=== PATIENT | male | born 1990 | race Caucasian/White ===

== ENCOUNTER 2018-11-19 08:30 | Emergency (ER) | payer OTHER ==
--- NOTE | 2018-11-19 08:44 | EDM.PDOC ---
ED HPI GENERAL MEDICAL PROBLEM - General Chief Complaint: Chest Pain Stated Complaint: CHEST HURT, DIZZY Time Seen by Provider: 11/19/18 08:44 Source of Information: Reports: Patient History Limitations: Reports: No Limitations - History of Present Illness INITIAL COMMENTS - FREE TEXT/NARRATIVE: 28-year-old male presents to the ED with persistent retrosternal chest pressure discomfort with a bit of a pleuritic component as it is worsened by deep breathing and is more sharp and stabbing. Patient states she awoke with this pain about 0400 hrs. this morning and it has persisted. It is slightly worse when he is sitting up versus lying down. Denies cough or sputum production. Denies fever or chills. He's never had anything like this before. He has not been ill recently. He chews tobacco but does not smoke cigarettes. Family history of heart disease mostly in his grandparents. Denies any feeling of need to burp or belch. Rare reflux disease. No previous abdominal surgery. Pain does not radiate anywhere. He did feel like his left arm was numb and tingly for. Of this time this morning but is better now. Onset: Today Onset Date: 11/19/18 Onset Time: 04:00 Duration: Hour(s):, Constant, Getting Worse Location: Reports: Chest Quality: Reports: Ache, Pressure, Other (There is a pleuritic component to the pain is well) Severity: Moderate (as it is aggravated by deep breathing. 7 out of 10) Improves with: Reports: Rest (Lying down is better than sitting up.) Worsens with: Reports: Other (Sitting forwards.) Context: Denies: Activity, Exercise, Lifting, Sick Contact, Trauma, Other Associated Symptoms: Reports: Chest Pain. 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 Denies: Fever, Chills, Weakness, Fatigue, Decreased Appetite, Weight Loss HEENT: Reports: No Symptoms Respiratory: Reports: Pleuritic Chest Pain. Denies: Shortness of Breath, Wheezing, Cough, Sputum (On deep inspiration) Cardiovascular: Reports: Chest Pain. Denies: Claudication, Dyspnea on Exertion , Edema, Lightheadedness, Orthopnea (Central retrosternal chest pressure discomfort starting in the epigastrium rating up into the lower chest) Endocrine: Reports: No Symptoms GI/Abdominal: Reports: Abdominal Pain (Epigastric pressure discomfort radiating up into his chest.) : Reports: No Symptoms Musculoskeletal: Reports: No Symptoms Skin: Reports: No Symptoms Neurological: Reports: No Symptoms Psychiatric: Reports: No Symptoms Hematologic/Lymphatic: Reports: No Symptoms Immunologic: Reports: No Symptoms ED EXAM, GENERAL - Physical Exam Exam: See Below Exam Limited By: No Limitations General Appearance: Alert, WD/WN, No Apparent Distress, Other (Vital signs are normal with a bradycardia 57/m BP mildly elevated 147/86 with sats of 97% on room air. Respiratory disease 18) Eye Exam: Bilateral Eye: Normal Inspection Throat/Mouth: Normal Oropharynx, Other Head: Atraumatic, Normocephalic Neck: Normal Inspection, Supple, Non-Tender, Full Range of Motion. No: Lymphadenopathy (L), Lymphadenopathy (R) Respiratory/Chest: No Respiratory Distress, Lungs Clear, Normal Breath Sounds, No Accessory Muscle Use Cardiovascular: Normal Peripheral Pulses, Regular Rate, Rhythm, No Edema, No Gallop, No Murmur, No Rub, Other (Patient has quiet lung sounds but he does have a thick chest.) Peripheral Pulses: 3+: Posterior Tibial (L), Posterior Tibial (R), Dorsalis Pedis (L), Dorsalis Pedis (R) GI/Abdominal: Normal Bowel Sounds, Soft, Non-Tender, No Organomegaly, No Abnormal Bruit, No Mass, Pelvis Stable Back Exam: Normal Inspection, Full Range of Motion. No: CVA Tenderness (L), CVA Tenderness (R) Extremities: Normal Inspection, Normal Range of Motion, Non-Tender, No Pedal Edema, Normal Capillary Refill Neurological: Alert, Oriented, CN II-XII Intact, Normal Cognition, Normal Gait, No Motor/Sensory Deficits Psychiatric: Normal Affect, Normal Mood Skin Exam: Warm, Dry, Intact, Normal Color, No Rash EKG INTERPRETATION EKG Date: 11/19/18 Time: 08:44 Rhythm: Other Rate (Beats/Min): 57 [place]: Normal P-Wave: Present QRS: Other (He has Q waves in V1 and V2. Consider old anteroseptal myocardial infarction.) ST-T: Elevated (Diffuse mildly elevated ST segment in V3 to V6 also to 3 and aVF consider possible pericarditis versus early repolarization pattern.) QT: Normal EKG Interpretation Comments: Borderline ECG Course - Vital Signs Last Recorded V/S: Last Vital Signs Temp 36.9 C 11/19/18 08:39 Pulse 57 L 11/19/18 08:39 Resp 18 11/19/18 08:39 BP 147/86 H 11/19/18 08:39 Pulse Ox 97 11/19/18 08:39 - Orders/Labs/Meds Orders: Active Orders 24 hr Category Date Time Status EKG Documentation Completion [RC] STAT Care 11/19/18 08:59 Active Chest 1V Frontal [CR] Stat Exams 11/19/18 08:59 Taken DD [D-DIMER QUANTITATIVE] [COAG] Stat Lab 11/19/18 10:55 Received INR,PT,PROTHROMBIN TIME [COAG] Stat Lab 11/19/18 10:05 Received PTT,PARTIAL THROMBOPLSTIN TIME [COAG] Stat Lab 11/19/18 10:05 Received Dextrose 5%-0.9% NaCl [Dextrose 5%-Normal Saline] 1,000 Med 11/19/18 09:00 Active ml IV ASDIRECTED Ketorolac [Toradol] Med 11/19/18 09:00 Active 30 mg IVPUSH ONETIME Medication Orders Dextrose/Sodium Chloride (Dextrose 5%-Normal Saline) 1,000 mls @ 500 mls/hr IV ASDIRECTED ANGELICA Last Admin: 11/19/18 09:54 Dose: 500 mls/hr Ketorolac Tromethamine (Toradol) 30 mg IVPUSH ONETIME ANGELICA Last Admin: 11/19/18 09:55 Dose: 30 mg Labs: Laboratory Tests 11/19/18 11/19/18 11/19/18 Range/Units 09:44 09:44 09:44 WBC 8.57 (4.23-9.07) K/mm3 RBC 5.56 (4.63-6.08) M/mm3 Hgb 16.3 (13.7-17.5) gm/L Hct 47.8 (40.1-51.0) % MCV 86.0 (79.0-92.2) fl MCH 29.3 (25.7-32.2) pg MCHC 34.1 (32.2-35.5) g/dl RDW Std Deviation 40.9 (35.1-43.9) fL Plt Count 269 (163-337) K/mm3 MPV 10.1 (9.4-12.3) fl Neutrophils % (Manual) 70 H (40-60) % Band Neutrophils % 0 (0-10) % Lymphocytes % (Manual) 20 (20-40) % Atypical Lymphs % 0 % Monocytes % (Manual) 9 (2-10) % Eosinophils % (Manual) 1 (0.8-7.0) % Basophils % (Manual) 0 L (0.2-1.2) Platelet Estimate Adequate RBC Morph Comment Normal ESR 5 (0-15) mm/hr Sodium 140 (136-145) mEq/L Potassium 3.7 (3.5-5.1) mEq/L Chloride 104 (98-107) mEq/L Carbon Dioxide 26 (21-32) mEq/L Anion Gap 13.7 (5-15) BUN 14 (7-18) mg/dL Creatinine 1.3 (0.7-1.3) mg/dL Est Cr Clr Drug Dosing 89.30 mL/min Estimated GFR (MDRD) > 60 (>60) mL/min BUN/Creatinine Ratio 10.8 L (14-18) Glucose 160 H (74-106) mg/dL Calcium 9.0 (8.5-10.1) mg/dL Total Bilirubin 0.4 (0.2-1.0) mg/dL AST 26 (15-37) U/L ALT 46 (16-63) U/L Alkaline Phosphatase 49 (46-116) U/L CK-MB (CK-2) 2.3 (0-3.6) ng/ml Troponin I < 0.017 (0.00-0.056) ng/mL C-Reactive Protein 0.8 (<1.0) mg/dL Total Protein 6.5 (6.4-8.2) g/dl Albumin 3.6 (3.4-5.0) g/dl Globulin 2.9 gm/dL Albumin/Globulin Ratio 1.2 (1-2) Amylase 45 (25-115) U/L Meds: Medications Generic Name Dose Route Start Last Admin Trade Name Freq PRN Reason Stop Dose Admin Dextrose/Sodium Chloride 1,000 mls @ 500 mls/hr 11/19/18 09:00 11/19/18 09:54 Dextrose 5%-Normal Saline IV 500 mls/hr ASDIRECTED ANGELICA Administration Ketorolac Tromethamine 30 mg 11/19/18 09:00 11/19/18 09:55 Toradol IVPUSH 30 mg ONETIME ANGELICA Administration Discontinued Medications Generic Name Dose Route Start Last Admin Trade Name Freq PRN Reason Stop Dose Admin Metoclopramide HCl 10 mg 11/19/18 08:58 11/19/18 09:55 Reglan IVPUSH 11/19/18 08:59 10 mg ONETIME ONE Administration - Radiology Interpretation Free Text/Narrative:: 28-year-old male presents to the ED with diffuse retrosternal chest pressure discomfort with associated intermittent left upper extremity numbness and tingling. It's better at the time of my examination. The chest pain is a little bit worse when he sitting versus lying down suggesting possible pericarditis. His ECG shows mild ST segment depression in V3 to V6 and throughout the inferior wall as well. There is a pleuritic component to his pain as well. Is otherwise in good health and usually uses no medications. Very little history of GERD or reflux. No history of burping or belching no odynophagia. Normal examination. Plan 1 view chest x-ray routine labs to include cardiac markers and a d-dimer. Also CRP and sedimentation rate. Will be given D5 normal saline at 250 mils per hour. Given Toradol 30 mg IV for relief of chest pain. - Re-Assessments/Exams Free Text/Narrative Re-Assessment/Exam: 11/19/18 09:24 chest x-ray done portably is normal normal cardiac silhouette lungs are clear. 11/19/18 10:07 patient reports chest pain is pretty well gone. It still present little bit when he sits up. Still waiting for the labs 11/19/18 10:40 Labs are back with a total white count of 8.57. 70% neutrophils with no bands hemoglobin is 16.3 with a hematocrit of 47.8 suggesting mild hemoconcentration sedimentation rate is 5. Sodium 140 with a potassium of 3.7. Port 104 with a bicarbonate 26. And a gap is 13.7 BUN is 14 with a creatinine of 1.3. GFR is greater than 60. Glucose is 160 mildly elevated. Calcium is 9.0. Liver function is normal. CK-MB is 2.3 troponin I is less than 0.017. C- reactive protein 0.8. Total protein 6.5 with albumin fraction of 3.6. Amylase is 45. Patient reassured of the findings. He's quite anxious to go. He is completely pain-free after using the Toradol was given IV. I still not 100% sure that he doesn't have a mild pericarditis. Has a mild pleurisy pain. He will continue [id number] Motrin 600 mg every 6 hours or Aleve 2 tablets every 8 hours for relief of the pain. Follow-up as indicated if he's not markedly improved in 5-7 days or sooner if he develops shortness of breath or any fever or chills. Departure - Departure Time of Disposition: 10:42 Disposition: Home, Self-Care 01 Condition: Fair Clinical Impression: Non-cardiac chest pain, Pleurisy Instructions: Pleurisy Referrals: PCP,None [Primary Care Provider] - Forms: ED Department Discharge Additional Instructions: Evaluation the emergency room this morning in regards to development of pleuritic chest pain since 4:00 this morning. Hurts to breathe also hurts to sit forward rather than lie down suggesting you may have a mild pericarditis or inflammation of the sac around her heart. Chest x-ray is normal. Lab tests all proved to be negative with no evidence of heart related illness. Cause of this is almost always viral. Treatment is anti-inflammatory Motrin 600 mg every 6 hours as needed to reduce the pain and inflammation for the next 3-5 days. You' re given Toradol 30 mg in the ED intravenously which did take away her chest pain. Follow-up if the pain is not markedly improved after 5-7 days duration. Sooner if the pain worsens or his associate with developing shortness of breath. Also if there is any fever or chills. - My Orders Last 24 Hours: My Active Orders 11/19/18 08:59 EKG Documentation Completion [RC] STAT Chest 1V Frontal [CR] Stat 11/19/18 09:00 Dextrose 5%-0.9% NaCl [Dextrose 5%-Normal Saline] 1,000 ml IV ASDIRECTED Ketorolac [Toradol] 30 mg IVPUSH ONETIME 11/19/18 10:05 INR,PT,PROTHROMBIN TIME [COAG] Stat PTT,PARTIAL THROMBOPLSTIN TIME [COAG] Stat 11/19/18 10:55 DD [D-DIMER QUANTITATIVE] [COAG] Stat - Assessment/Plan Last 24 Hours: My Active Orders 11/19/18 08:59 EKG Documentation Completion [RC] STAT Chest 1V Frontal [CR] Stat 11/19/18 09:00 Dextrose 5%-0.9% NaCl [Dextrose 5%-Normal Saline] 1,000 ml IV ASDIRECTED Ketorolac [Toradol] 30 mg IVPUSH ONETIME 11/19/18 10:05 INR,PT,PROTHROMBIN TIME [COAG] Stat PTT,PARTIAL THROMBOPLSTIN TIME [COAG] Stat 11/19/18 10:55 DD [D-DIMER QUANTITATIVE] [COAG] Stat
[2018-11-19] MEDS ORDERED: Metoclopramide 10 MG/2 ML SDV IVPUSH ONE (08:58)
[2018-11-19] MEDS ORDERED: Ketorolac 30 MG/ML SDV IVPUSH SCH (09:00)
[2018-11-19] MEDS ORDERED: Dextrose 5%-0.9% NaCl 1,000 ML IV SCH (09:00)
[2018-11-19] MEDS ORDERED: Metoclopramide 10 MG/2 ML SDV ONE (09:49)
[2018-11-19] MEDS ORDERED: Ketorolac 30 MG/ML SDV ONE (09:49)
[2018-11-19] MEDS ORDERED: Dextrose 5% in Water 1,000 ML ONE (09:50)
[2018-11-19] MEDS ORDERED: Dextrose 5%-0.9% NaCl 1,000 ML ONE (09:51)
--- NOTE | 2018-11-19 14:29 | CR ---
Chest: Portable view of the chest was obtained. Comparison: No prior chest x-ray. Heart size and mediastinum are normal. Lungs are clear. Bony structures are grossly intact. Impression: 1. Nothing acute is seen on portable chest x-ray. Diagnostic code #1
== END 2018-11-19 10:55 | disposition home or self-care (01) ==
LOC: JD.ED 08:30
DX: R07.89 Other chest pain (principal); R09.1 Pleurisy; F17.290 Nicotine dependence, other tobacco product, uncomplicated
CPT/HCPCS: 36415; 71045; 80053; 82150; 82553; 84484; 85007; 85027; 85379; 85610; 85652; 85730; 86140; 93005; 96361; 96374; 96375; 99285; J1885; J2765; J7042; 93010

== ENCOUNTER 2019-01-31 22:35 | Emergency (ER) | payer OTHER ==
[2019-01-31] MEDS ORDERED: Acetaminophen/oxyCODONE 325-5 MG Tab PO ONE (23:30)
[2019-01-31] MEDS ORDERED: predniSONE 20 MG Tab PO ONE (23:30)
--- NOTE | 2019-02-01 00:04 | EDM.PDOC ---
ED HPI GENERAL MEDICAL PROBLEM - General Chief Complaint: Lower Extremity Injury/Pain Stated Complaint: GOUT IN LEFT FOOT Time Seen by Provider: 01/31/19 23:21 Source of Information: Reports: Patient, RN Notes Reviewed - History of Present Illness INITIAL COMMENTS - FREE TEXT/NARRATIVE: 28-year-old male presents with complaint of "gout left foot". In having pain left mid foot and ankle about 3 days ago. He has been taking Indocin "every 3-4 hours while awake and not getting meaningful relief". He has had multiple attacks of gout in the past. No recent injury. No fever or chills. Left Ankle Pain Score (Numeric/FACES): 9 - Related Data Allergies Allergy/AdvReac Type Severity Reaction Status Date / Time No Known Allergies Allergy Verified 01/31/19 22:44 Home Meds: Home Meds Indomethacin [Indocin] 50 mg PO ASDIRECTED PRN 11/19/18 [History] oxyCODONE HCl/Acetaminophen [Percocet 5-325 mg Tablet] 1 each PO Q6HR PRN #6 tablet 02/01/19 [Rx] predniSONE [Prednisone] 50 mg PO DAILY #6 tablet 02/01/19 [Rx] Past Medical History Genitourinary History: Reports: Other (See Below) Other Genitourinary History: Polycystic kidney Musculoskeletal History: Reports: Gout Other Endocrine/Metabolic History: polycystic kidney disease. - Past Surgical History GI Surgical History: Reports: Hernia, Inguinal Social & Family History - Tobacco Use Smoking Status *Q: Current Every Day Smoker Years of Tobacco use: 17 Packs/Tins Daily: 1 - Recreational Drug Use Recreational Drug Use: No Review of Systems - Review of Systems Review Of Systems: See Below Constitutional: Denies: Chills, Fever Eyes: Reports: No Symptoms Mouth/Throat: Reports: No Symptoms Respiratory: Denies: Shortness of Breath Cardiovascular: Denies: Chest Pain GI/Abdominal: Denies: Abdominal Pain, Nausea, Vomiting Musculoskeletal: Reports: Foot Pain, Joint Pain (Left ankle) Skin: Reports: No Symptoms Neurological: Reports: No Symptoms ED EXAM, GENERAL - Physical Exam Exam: See Below General Appearance: Alert, Moderate Distress Throat/Mouth: Normal Inspection Head: Atraumatic. No: Facial Swelling Neck: Supple Respiratory/Chest: No Respiratory Distress, Lungs Clear Cardiovascular: Regular Rate, Rhythm Extremities: Other (There is tenderness of the left midfoot and distal ankle joint anteriorly. No visible swelling, no warmth or erythema, mild pain with motion.). No: Joint Swelling Neurological: Alert, Oriented, No Motor/Sensory Deficits Skin Exam: Warm, Dry, Normal Color Course - Vital Signs Last Recorded V/S: Last Vital Signs Temp 98.5 F 01/31/19 22:44 Pulse 76 01/31/19 22:44 Resp 20 01/31/19 22:44 BP 155/87 H 01/31/19 22:44 Pulse Ox 97 01/31/19 22:44 - Orders/Labs/Meds Meds: Medications Discontinued Medications Generic Name Dose Route Start Last Admin Trade Name Freq PRN Reason Stop Dose Admin Oxycodone/Acetaminophen 1 tab 01/31/19 23:30 01/31/19 23:40 Percocet 325-5 Mg PO 01/31/19 23:31 1 tab ONETIME ONE Administration Prednisone 80 mg 01/31/19 23:30 01/31/19 23:41 Prednisone PO 01/31/19 23:31 80 mg ONETIME ONE Administration Departure - Departure Time of Disposition: 00:02 Disposition: Home, Self-Care 01 Clinical Impression: Gout Qualifiers: Gout site: ankle Gout etiology: unspecified cause Chronicity: acute Laterality : left Qualified Code(s): M10.9 - Gout, unspecified - Discharge Information Prescriptions: oxyCODONE HCl/Acetaminophen [Percocet 5-325 mg Tablet] 1 each PO Q6HR PRN #6 tablet PRN Reason: Pain predniSONE [Prednisone] 50 mg PO DAILY #6 tablet Instructions: Gout, [id number] Referrals: PCP,None [Primary Care Provider] - Forms: ED Department Discharge Additional Instructions: Rest and elevate foot as much as possible, continue Indocin as previously prescribed, prednisone 50 mg daily with your next dose this morning any time after 8:00. You have been given a dose of Percocet here in the ED. Do not drive or work within 6 hours of taking Percocet. Do not drive or work if you feel dizzy or impaired from the Percocet. You may continue to take Percocet in the evening after work if needed for severe pain not relieved by Indocin and Tylenol. follow up with your regular medical provider if not much better within 2-3 days as expected. Return to ED as needed if symptoms worsening in any way.
== END 2019-02-01 00:18 | disposition home or self-care (01) ==
LOC: JD.ED 22:35
DX: M10.9 Gout, unspecified (principal); F17.210 Nicotine dependence, cigarettes, uncomplicated; Z79.899 Other long term (current) drug therapy
CPT/HCPCS: 99283; A9270

== ENCOUNTER 2019-11-27 21:43 | Emergency (ER) | payer OTHER ==
--- NOTE | 2019-11-28 07:32 | CR ---
Chest: Two views of the chest were obtained. Comparison: Previous chest x-ray of 11/19/18. Heart size and mediastinum are normal. Lungs are clear with no acute parenchymal change. Bony structures appear unremarkable. Impression: 1. Nothing acute is appreciated on two-view chest x-ray. Diagnostic code #1 This report was dictated in [place] Standard Time
== END 2019-11-28 01:41 ==
LOC: JD.ED 21:43
DX: Z53.21 Procedure and treatment not carried out due to patient leaving prior to being seen by health care provider (principal)
CPT/HCPCS: 36415; 71046; 71046-26; 80053; 85025; 93005

== ENCOUNTER 2019-11-28 17:28 | Emergency (ER) | payer OTHER ==
--- NOTE | 2019-11-28 18:00 | EDM.PDOC ---
ED HPI GENERAL MEDICAL PROBLEM - General Chief Complaint: Chest Pain Stated Complaint: WAS TOLD TO RETURN TO ER Time Seen by Provider: 11/28/19 17:42 Source of Information: Reports: Patient, RN Notes Reviewed - History of Present Illness INITIAL COMMENTS - FREE TEXT/NARRATIVE: 29 yr old male has had heaviness ant chest for about a week. Has also felt mildly short of breath. Discomfort does not radiate. He was ill a couple of wks ago with influenza or URI type sx but that did get better. No longer coughing. No recent fever or chills. No hx of cardiac or pulmonary problems. Hx GERD Right Chest Pain Score (Numeric/FACES): 4 - Related Data Allergies Allergy/AdvReac Type Severity Reaction Status Date / Time No Known Allergies Allergy Verified 11/28/19 17:42 Home Meds: Home Meds . [No Known Home Meds] 11/28/19 [History] Past Medical History Genitourinary History: Reports: Other (See Below) Other Genitourinary History: Polycystic kidney Musculoskeletal History: Reports: Gout Other Endocrine/Metabolic History: polycystic kidney disease. - Past Surgical History GI Surgical History: Reports: Hernia, Inguinal Social & Family History - Tobacco Use Smoking Status *Q: Never Smoker - Caffeine Use Caffeine Use: Reports: Soda - Recreational Drug Use Recreational Drug Use: No ED ROS GENERAL - Review of Systems Review Of Systems: See Below Constitutional: Denies: Fever, Chills, Diaphoresis HEENT: Reports: No Symptoms Respiratory: Reports: Shortness of Breath. Denies: Wheezing, Pleuritic Chest Pain, Cough Cardiovascular: Reports: Chest Pain GI/Abdominal: Denies: Abdominal Pain, Nausea, Vomiting Musculoskeletal: Denies: Neck Pain, Shoulder Pain, Arm Pain, Back Pain, Leg Pain Skin: Reports: No Symptoms Neurological: Reports: No Symptoms ED EXAM, GENERAL - Physical Exam Exam: See Below General Appearance: Alert, No Apparent Distress Eye Exam: Bilateral Eye: PERRL Throat/Mouth: Normal Inspection, Normal Oropharynx Head: Atraumatic Neck: Supple Respiratory/Chest: No Respiratory Distress, Lungs Clear, Normal Breath Sounds. No: Rales, Rhonchi, Wheezing Cardiovascular: Regular Rate, Rhythm GI/Abdominal: Soft, Non-Tender Back Exam: No: CVA Tenderness (L), CVA Tenderness (R) Extremities: No: Pedal Edema, Leg Pain Neurological: Alert, Oriented, No Motor/Sensory Deficits Skin Exam: Warm, Dry, Normal Color EKG INTERPRETATION EKG Date: 11/28/19 Rhythm: NSR [place]: Normal P-Wave: Present QRS: Other (there are q waves V2 and V3.) ST-T: Other (very mild ST elevation V2, probable normal early repol. pattern) Course - Vital Signs Last Recorded V/S: Last Vital Signs Temp 97.6 F 11/28/19 17:39 Pulse 80 11/28/19 17:39 Resp 19 11/28/19 17:39 BP 152/78 H 11/28/19 17:39 Pulse Ox 100 11/28/19 17:39 - Orders/Labs/Meds Labs: Laboratory Tests 11/28/19 Range/Units 17:50 Troponin I < 0.017 (0.00-0.056) ng/mL - Re-Assessments/Exams Free Text/Narrative Re-Assessment/Exam: 11/28/19 19:02 Of note he did come to the ED last evening. Had an EKG and CXR ordered and done. The ED was busy, after a LOS of around 4 hrs he left without being seen. Have looked at EKG from last evening and we have repeated EKG today. EKG today does not show any acute changes. X-ray of last evening was normal and read out as normal by Dr. Hallman, Radiologist. Heart and lung exam today is normal. Sats are running 97 to 100% on room air. His breathing and moving air comfortably, not wheezing. No rales or rhonchi. Blood pressure was mildly elevated on arrival but he and his are somewhat stressed over the discomfort. Is been having the current discomfort for about a week. Troponin did come back negative. Swollen nontender. Because this is been going on for a week with a normal [place] I do not see that repeating his troponin this evening is going to be of value. I have advised clinic follow-up Tuesday 2 days from now for recheck. If unable to get into either clinic he should return here to the ED for recheck. Discharge instructions as documented. Departure - Departure Time of Disposition: 18:56 Disposition: Home, Self-Care 01 Condition: Fair Clinical Impression: Atypical chest pain Instructions: Nonspecific Chest Pain Referrals: PCP,None [Primary Care Provider] - Forms: ED Department Discharge Additional Instructions: Your heart and lungs are checking out well. Your creatnine last evening was 1.6 up from 1.3 a yr ago so be aware of that. Drink plenty of water to maintain hydration. Tylenol 2-3 times daily as needed for discomfort. Avoid any heavy lifting for now. Follow-up at our [facility] or at [facility] Tuesday for recheck, call for appointment. If unable to see a medical provider at either clinic Tuesday return to ED for recheck if still having chest discomfort or any other unusual symptoms. Sepsis Event Note - Evaluation Sepsis Screening Result: No Definite Risk - Focused Exam Date Exam was Performed: 11/30/19 Time Exam was Performed: 16:08
== END 2019-11-28 19:12 | disposition home or self-care (01) ==
LOC: JD.ED 17:28
DX: R07.89 Other chest pain (principal)
CPT/HCPCS: 36415; 84484; 93005; 93010; 99283; 99285-25

== ENCOUNTER 2021-04-16 21:18 | Emergency (ER) | payer SELFPAY ==
--- NOTE | 2021-04-16 21:50 | EDM.PDOC ---
ED HPI GENERAL MEDICAL PROBLEM - General Chief Complaint: Diabetic Complaint Stated Complaint: BLOOD SUGAR HIGH/VISION PROBLEMS Time Seen by Provider: 04/16/21 21:37 - History of Present Illness INITIAL COMMENTS - FREE TEXT/NARRATIVE: 30-year-old male presents the emergency room with hyperglycemia and vision changes. Patient was seen in the walk-in clinic found to have blood sugar over 400 this was roughly a month ago. They arranged him a appointment with a primary health provider the first week in May. Patient's blood sugars continue to go up and now he is having vision changes for about the last week his vision just is not as good as it used to be. Patient denies any other problems at this time except he just does not feel that great. Patient has a strong family history of type 2 diabetes on both sides. He is overweight. He said no known history of heart or kidney problems. He has never been treated for his blood sugars. - Related Data Allergies Allergy/AdvReac Type Severity Reaction Status Date / Time No Known Allergies Allergy Verified 04/16/21 21:38 Home Meds: Home Meds Insulin Glarg,Human.Rec.Analog [Lantus] 10 unit SUBCUT DAILY #10 ml 04/16/21 [Rx] metFORMIN [Glucophage] 500 mg PO DAILY #30 tablet 04/16/21 [Rx] Past Medical History Genitourinary History: Reports: Other (See Below) Other Genitourinary History: Polycystic kidney Musculoskeletal History: Reports: Gout Other Endocrine/Metabolic History: polycystic kidney disease. - Past Surgical History GI Surgical History: Reports: Hernia, Inguinal Social & Family History - Caffeine Use Caffeine Use: Reports: Soda ED ROS GENERAL - Review of Systems Review Of Systems: See Below Constitutional: Reports: No Symptoms HEENT: Reports: No Symptoms, Vision Change Respiratory: Reports: No Symptoms Cardiovascular: Reports: No Symptoms Endocrine: Reports: High Glucose, Polydypsia. Denies: No Symptoms GI/Abdominal: Reports: No Symptoms : Reports: No Symptoms Musculoskeletal: Reports: No Symptoms Skin: Reports: No Symptoms Neurological: Reports: No Symptoms Psychiatric: Reports: No Symptoms Hematologic/Lymphatic: Reports: No Symptoms Immunologic: Reports: No Symptoms ED EXAM GENERAL NO PERIP PULSE - Physical Exam Exam: See Below Exam Limited By: No Limitations General Appearance: Alert, No Apparent Distress Head: Atraumatic, Normocephalic Neck: Normal Inspection, Supple, Non-Tender, Full Range of Motion. No: Lymphadenopathy (L), Lymphadenopathy (R) Respiratory/Chest: No Respiratory Distress, Lungs Clear, Normal Breath Sounds Cardiovascular: Regular Rate, Rhythm, No Edema, No Murmur GI/Abdominal: Normal Bowel Sounds, Soft, Non-Tender Back Exam: Normal Inspection. No: CVA Tenderness (L), CVA Tenderness (R) Neurological: Alert, Oriented, Normal Cognition Psychiatric: Normal Affect, Normal Mood Course - Vital Signs Last Recorded V/S: Last Vital Signs Temp 36.1 C 04/16/21 21:33 Pulse 102 H 04/16/21 21:33 Resp 16 04/16/21 21:33 BP 142/90 H 04/16/21 21:33 Pulse Ox 100 04/16/21 21:33 - Orders/Labs/Meds Orders: Active Orders 24 hr Category Date Time Status Accu Check [Blood Glucose Check, Bedside] [RC] ONETIME Care 04/16/21 22:03 Active ASTRID-65 AUTOANTIBODY [REF] Stat Lab 04/16/21 22:22 Received Medication Orders Insulin Glargine (Insulin Glarg,Human.Rec.Analog 100 Unit/Ml) 10 unit SUBCUT ONETIME ONE Stop: 04/16/21 23:28 Labs: Laboratory Tests 04/16/21 04/16/21 04/16/21 Range/Units 22:09 22:22 22:22 WBC 9.01 (4.23-9.07) K/mm3 RBC 5.71 (4.63-6.08) M/mm3 Hgb 17.1 (13.7-17.5) gm/dl Hct 47.5 (40.1-51.0) % MCV 83.2 (79.0-92.2) fl MCH 29.9 (25.7-32.2) pg MCHC 36.0 H (32.2-35.5) g/dl RDW Std Deviation 38.0 (35.1-43.9) fL Plt Count 235 D (163-337) K/mm3 MPV 11.0 (9.4-12.3) fl Neut % (Auto) 64.9 (34.0-67.9) % Lymph % (Auto) 24.9 (21.8-53.1) % [place] % (Auto) 8.7 (5.3-12.2) % Eos % (Auto) 0.8 (0.8-7.0) Baso % (Auto) 0.6 (0.1-1.2) % Neut # (Auto) 5.86 H (1.78-5.38) K/mm3 Lymph # (Auto) 2.24 (1.32-3.57) K/mm3 [place] # (Auto) 0.78 (0.30-0.82) K/mm3 Eos # (Auto) 0.07 (0.04-0.54) K/mm3 Baso # (Auto) 0.05 (0.01-0.08) K/mm3 Sodium 137 (136-145) mEq/L Potassium 3.5 (3.5-5.1) mEq/L Chloride 97 L (98-107) mEq/L Carbon Dioxide 25 (21-32) mEq/L Anion Gap 18.5 H (5-15) BUN 15 (7-18) mg/dL Creatinine 1.6 H (0.7-1.3) mg/dL Est Cr Clr Drug Dosing 71.25 mL/min Estimated GFR (MDRD) 51 (>60) mL/min BUN/Creatinine Ratio 9.4 L (14-18) Glucose 401 H* (70-99) mg/dL POC Glucose 428 H* (70-99) mg/dL Hemoglobin A1c ( - 5.6) % Calcium 8.7 (8.5-10.1) mg/dL Total Bilirubin 0.6 (0.2-1.0) mg/dL AST 52 H (15-37) U/L ALT 64 H (16-63) U/L Alkaline Phosphatase 82 (46-116) U/L Total Protein 7.4 (6.4-8.2) g/dl Albumin 4.3 (3.4-5.0) g/dl Globulin 3.1 gm/dL Albumin/Globulin Ratio 1.4 (1-2) Urine Color (Yellow) Urine Appearance (Clear) Urine pH (5.0-8.0) Ur Specific [place] (1.005-1.030) Urine Protein (Negative) Urine Glucose (UA) (Negative) Urine Ketones (Negative) Urine Occult Blood (Negative) Urine Nitrite (Negative) Urine Bilirubin (Negative) Urine Urobilinogen (0.2-1.0) Ur Leukocyte Esterase (Negative) Urine RBC (0-5) /hpf Urine WBC (0-5) /hpf Ur Squamous Epith Cells (0-5) /hpf Urine Bacteria (FEW) /hpf Urine Mucus (FEW) /hpf 04/16/21 04/16/21 Range/Units 22:22 22:39 WBC (4.23-9.07) K/mm3 RBC (4.63-6.08) M/mm3 Hgb (13.7-17.5) gm/dl Hct (40.1-51.0) % MCV (79.0-92.2) fl MCH (25.7-32.2) pg MCHC (32.2-35.5) g/dl RDW Std Deviation (35.1-43.9) fL Plt Count (163-337) K/mm3 MPV (9.4-12.3) fl Neut % (Auto) (34.0-67.9) % Lymph % (Auto) (21.8-53.1) % [place] % (Auto) (5.3-12.2) % Eos % (Auto) (0.8-7.0) Baso % (Auto) (0.1-1.2) % Neut # (Auto) (1.78-5.38) K/mm3 Lymph # (Auto) (1.32-3.57) K/mm3 [place] # (Auto) (0.30-0.82) K/mm3 Eos # (Auto) (0.04-0.54) K/mm3 Baso # (Auto) (0.01-0.08) K/mm3 Sodium (136-145) mEq/L Potassium (3.5-5.1) mEq/L Chloride (98-107) mEq/L Carbon Dioxide (21-32) mEq/L Anion Gap (5-15) BUN (7-18) mg/dL Creatinine (0.7-1.3) mg/dL Est Cr Clr Drug Dosing mL/min Estimated GFR (MDRD) (>60) mL/min BUN/Creatinine Ratio (14-18) Glucose (70-99) mg/dL POC Glucose (70-99) mg/dL Hemoglobin A1c 10.4 H ( - 5.6) % Calcium (8.5-10.1) mg/dL Total Bilirubin (0.2-1.0) mg/dL AST (15-37) U/L ALT (16-63) U/L Alkaline Phosphatase (46-116) U/L Total Protein (6.4-8.2) g/dl Albumin (3.4-5.0) g/dl Globulin gm/dL Albumin/Globulin Ratio (1-2) Urine Color Light yellow (Yellow) Urine Appearance Clear (Clear) Urine pH 6.5 (5.0-8.0) Ur Specific [place] 1.020 (1.005-1.030) Urine Protein Negative (Negative) Urine Glucose (UA) 2+ H (Negative) Urine Ketones 2+ H (Negative) Urine Occult Blood Trace-lysed H (Negative) Urine Nitrite Negative (Negative) Urine Bilirubin Negative (Negative) Urine Urobilinogen 0.2 (0.2-1.0) Ur Leukocyte Esterase Negative (Negative) Urine RBC 0-5 (0-5) /hpf Urine WBC 0-5 (0-5) /hpf Ur Squamous Epith Cells 0-5 (0-5) /hpf Urine Bacteria Few (FEW) /hpf Urine Mucus Few (FEW) /hpf Meds: Medications Generic Name Dose Route Start Last Admin Trade Name Freq PRN Reason Stop Dose Admin Insulin Glargine 10 unit 04/16/21 23:27 Insulin Glarg,Human.Rec.Analog 100 Unit/Ml SUBCUT 04/16/21 23:28 ONETIME ONE Discontinued Medications Generic Name Dose Route Start Last Admin Trade Name Freq PRN Reason Stop Dose Admin Insulin Glargine 10 unit 04/17/21 23:18 Insulin Glarg,Human.Rec.Analog 100 Unit/Ml SUBCUT 04/17/21 23:19 ONETIME ONE Metformin HCl 500 mg 04/16/21 23:18 Metformin 500 Mg Tab PO 04/16/21 23:19 ONETIME ONE - Re-Assessments/Exams Free Text/Narrative Re-Assessment/Exam: 04/16/21 23:29 Labs checked we will start up on Metformin 500 mg once daily and Lantus 10 units every evening. He is encouraged to follow-up in the hospital clinic this week if if at all possible he will call first thing in the morning to try and get this arranged. Departure - Departure Time of Disposition: 23:29 Disposition: Home, Self-Care 01 Clinical Impression: Type 2 diabetes mellitus - Discharge Information Prescriptions: metFORMIN [Glucophage] 500 mg PO DAILY #30 tablet Insulin Glarg,Human.Rec.Analog [Lantus] 10 unit SUBCUT DAILY #10 ml Referrals: Tracy Aguilar PA-C [Primary Care Provider] - Forms: ED Department Discharge Additional Instructions: Return to the emergency room with any questions problems or worsening symptoms. Call the hospital clinic tomorrow for an appointment as soon as they can get you in. [phone] You have been started on insulin, Lantus, this is a long-acting insulin use it in the evening only. This is best taken before bed. You have also been started on Metformin. 500 mg take this with your evening meal. Sepsis Event Note (ED) - Focused Exam Vital Signs: Vital Signs Temp Pulse Resp BP Pulse Ox 04/16/21 21:33 36.1 C 102 H 16 142/90 H 100 - My Orders Last 24 Hours: My Active Orders 04/16/21 22:03 Accu Check [Blood Glucose Check, Bedside] [RC] ONETIME 04/16/21 22:22 ASTRID-65 AUTOANTIBODY [REF] Stat - Assessment/Plan Last 24 Hours: My Active Orders 04/16/21 22:03 Accu Check [Blood Glucose Check, Bedside] [RC] ONETIME 04/16/21 22:22 ASTRID-65 AUTOANTIBODY [REF] Stat
[2021-04-16 23:08] LABS: HEMOGLOBIN A1C 10.4 %
[2021-04-16] MEDS ORDERED: metFORMIN 500 MG Tab PO ONE (23:18)
[2021-04-16] MEDS ORDERED: Insulin Glarg,Human.Rec.Analog 100 Unit/ML SUBCUT ONE (23:27)
[2021-04-17] MEDS ORDERED: Insulin Glarg,Human.Rec.Analog 100 Unit/ML SUBCUT ONE (23:18)
== END 2021-04-16 23:45 | disposition home or self-care (01) ==
LOC: JD.ED 21:18
DX: E11.65 Type 2 diabetes mellitus with hyperglycemia (principal); Z79.4 Long term (current) use of insulin
CPT/HCPCS: 36415; 80053; 81001; 82947; 83036; 85025; 86341; 99284; A9270; J1815; 99283